=== PATIENT | male | born 1965 | race Caucasian/White ===

== ENCOUNTER 2017-11-08 09:12 | Inpatient (IN) | payer SELFPAY ==
[~2017-11-08] VITALS: Ht 193 cm; Wt 136.0 kg
[~2017-11-08 09:12] MED LIST: ACET325 PO; AMOX500 PO; CEFTR1PB IV; CEPH500 PO; CLIN300 PO; CRUTCH USE; CYCL10 PO; Cephalexin500 M1 PO; DIBU30TO PR; DOXY100 PO; GLIM2 PO; HYDACE10B PO; HYDACE25S PR; HYDACE5; HYDACE5 PO; HYDCOR2.5A PR; HYDCOR2.5C PR; HYDMOR2 PO; HYDMOR4 PO; HYDR1TAB94 PO; HYDR25SUP PR; IBUP800; IBUP800 PO; LORA2 PO; META400 PO; META800 PO; METF500 PO; METF500C PO; NAPR220 PO; NAPR500 PO; OMEP20ER; OXYACE10 PO; OXYACE5T PO; PRAHYD1AE TOP; PRED20 PO; Prednisone20 MG PO; RXCYCL10 PO; RXLORA1 PO; RXOXYACE PO; SACC250C PO; SULTRIDS PO; UNKNOWN ABX
[2017-11-08] MEDS ORDERED: METF500C PO (09:43)
[2017-11-08] MEDS ORDERED: GLIP2.5ER PO (09:43)
[2017-11-08] MEDS ORDERED: Bactrim Ds Tab1 EACH PO (09:45)
[2017-11-08] MEDS ORDERED: NAPR220 (09:45)
[2017-11-08] MEDS ORDERED: CEPH500 PO (09:47)
[2017-11-08 09:53] LABS: BASOPHILS ABSOLUTE AUTO 0.05 K/mm3 (0.00-0.23); BASOPHILS PERCENT AUTO 1 % (0-2); EOSINOPHILS ABSOLUTE AUTO 0.13 K/mm3 (0.00-0.68); EOSINOPHILS PERCENT AUTO 2 % (0-6); Hematocrit 41.3 % (37.0-53.0); Hemoglobin 14.2 g/dL (13.5-17.5); IMMATURE GRAN ABSOLUTE AUTO 0.02 K/mm3 (0.00-0.10); IMMATURE GRAN PERCENT AUTO 0 % (0-1); LYMPHOCYTES ABSOLUTE AUTO 1.19 K/mm3 (0.84-5.20); LYMPHOCYTES PERCENT AUTO 20 % (21-46); MONOCYTES ABSOLUTE AUTO 0.48 K/mm3 (0.16-1.47); MONOCYTES PERCENT AUTO 8 % (4-13); Mean Corpuscular HGB Conc 34.4 g/dL (31.5-36.5); Mean Corpuscular Volume 90 fL (80-100); Mean Platelet Volume 10.4 fL (9.1-12.4); NEUTROPHILS ABSOLUTE AUTO 4.18 K/mm3 (1.96-9.15); NEUTROPHILS PERCENT AUTO 69 % (41-73); Platelet Count 226 K/mm3 (150-400); RDW Coefficient Variation 11.8 % (11.7-14.2); RDW Standard Deviation 38.8 fL (35.1-46.3); Red Blood Cell Count 4.58 M/mm3 (4.30-5.90); White Blood Cell Count 6.05 K/mm3 (4.00-11.30)
[2017-11-08 10:14] LABS: Alanine Aminotransfer (ALT/SGP 31 U/L (12-78); Albumin, Blood 4.1 g/dL (3.4-5.0); Albumin/Globulin Ratio 1.1 (0.8-1.8); Alk Phos 85 U/L (50-136); Anion Gap 9 mmol/L (6-16); Aspartate Aminotrans (AST/SGOT 16 U/L (12-37); Bilirubin, Total 0.6 mg/dL (0.1-1.0); Blood Urea Nitrogen 18 mg/dL (8-24); Bun/Creatinine Ratio 25.4 (12.0-20.0); CO2, Blood 24 mmol/L (21-32); Chloride, Blood 105 mmol/L (98-108); Creatinine, Blood 0.71 mg/dL (0.60-1.20); Globulin, Blood 3.6 g/dL (2.2-4.0); Glomerular Filtration Rate >60 (60-); Glucose, Blood 226 mg/dL (70-99); Potassium, Blood 4.6 mmol/L (3.5-5.5); Sodium, Blood 138 mmol/L (136-145); Total Protein, Blood 7.7 g/dL (6.4-8.2)
[2017-11-09 11:30] LABS: Vancomycin, Trough 11.7 ug/mL (5.0-10.0)
[2017-11-10 05:31] LABS: BASOPHILS ABSOLUTE AUTO 0.06 K/mm3 (0.00-0.23); BASOPHILS PERCENT AUTO 1 % (0-2); EOSINOPHILS ABSOLUTE AUTO 0.17 K/mm3 (0.00-0.68); EOSINOPHILS PERCENT AUTO 3 % (0-6); Hematocrit 38.5 % (37.0-53.0); Hemoglobin 13.4 g/dL (13.5-17.5); IMMATURE GRAN ABSOLUTE AUTO 0.02 K/mm3 (0.00-0.10); IMMATURE GRAN PERCENT AUTO 0 % (0-1); LYMPHOCYTES ABSOLUTE AUTO 2.02 K/mm3 (0.84-5.20); LYMPHOCYTES PERCENT AUTO 33 % (21-46); MONOCYTES ABSOLUTE AUTO 0.73 K/mm3 (0.16-1.47); MONOCYTES PERCENT AUTO 12 % (4-13); Mean Corpuscular HGB 31.3 pg (26.0-34.0); Mean Corpuscular HGB Conc 34.8 g/dL (31.5-36.5); Mean Corpuscular Volume 90 fL (80-100); Mean Platelet Volume 10.4 fL (9.1-12.4); NEUTROPHILS ABSOLUTE AUTO 3.22 K/mm3 (1.96-9.15); NEUTROPHILS PERCENT AUTO 52 % (41-73); Platelet Count 212 K/mm3 (150-400); RDW Coefficient Variation 11.7 % (11.7-14.2); RDW Standard Deviation 38.4 fL (35.1-46.3); Red Blood Cell Count 4.28 M/mm3 (4.30-5.90); White Blood Cell Count 6.22 K/mm3 (4.00-11.30)
[2017-11-10 06:01] LABS: Alanine Aminotransfer (ALT/SGP 26 U/L (12-78); Albumin, Blood 3.3 g/dL (3.4-5.0); Alk Phos 76 U/L (50-136); Anion Gap 8 mmol/L (6-16); Aspartate Aminotrans (AST/SGOT 12 U/L (12-37); Bilirubin, Total 0.8 mg/dL (0.1-1.0); Blood Urea Nitrogen 18 mg/dL (8-24); Bun/Creatinine Ratio 30.2 (12.0-20.0); CO2, Blood 26 mmol/L (21-32); Calcium, Blood 8.5 mg/dL (8.5-10.1); Chloride, Blood 104 mmol/L (98-108); Globulin, Blood 3.4 g/dL (2.2-4.0); Glomerular Filtration Rate >60 (60-); Glucose, Blood 187 mg/dL (70-99); Potassium, Blood 4.1 mmol/L (3.5-5.5); Sodium, Blood 138 mmol/L (136-145); Total Protein, Blood 6.7 g/dL (6.4-8.2)
[2017-11-10 11:13] LABS: Vancomycin, Trough 17.1 ug/mL (5.0-10.0)
[2017-11-10] MEDS ORDERED: Lisinopril2.5 MG PO (11:28)
[2017-11-10] MEDS ORDERED: HYDR1TAB94 PO (11:28)
== END 2017-11-10 12:29 | disposition home or self-care (01) | DRG 617 ==
LOC: ER 09:12 → MEDS 10:02 → ENPENDDIS 11-10 09:00 → MEDS 11-10 12:29
PROVIDERS: Emergency Medicine; Hospitalist; Podiatrist
PROC: 3E0234Z Introduction of Serum, Toxoid and Vaccine into Muscle, Percutaneous Approach (ICD-10-PCS; 2017-11-08)
PROC: 0Y6X0Z0 Detachment at Right 5th Toe, Complete, Open Approach (ICD-10-PCS; principal; 2017-11-09 09:00)
DX: E11.69 Type 2 diabetes mellitus with other specified complication (principal); M86.9 Osteomyelitis, unspecified; L97.511 Non-pressure chronic ulcer of other part of right foot limited to breakdown of skin; Z23 Encounter for immunization; F17.220 Nicotine dependence, chewing tobacco, uncomplicated; E11.42 Type 2 diabetes mellitus with diabetic polyneuropathy; E78.5 Hyperlipidemia, unspecified; E11.621 Type 2 diabetes mellitus with foot ulcer; E66.9 Obesity, unspecified; Z68.36 Body mass index [BMI] 36.0-36.9, adult
CPT/HCPCS: 36415; 73630; 80053; 80202; 82565; 82947; 85025; 85651; 86140; 87071; 87075; 87205; 88307; 88311; 96365; 96366; 99285; J2250; J3010; J3370; J7030; J7050

== ENCOUNTER 2018-03-17 14:18 | Emergency (ER) | payer OTHER ==
[~2018-03-17] VITALS: Ht 193 cm; Wt 136.1 kg
[~2018-03-17 14:18] MED LIST changes: +Bactrim Ds Tab1 EACH PO; +GLIP2.5ER PO; +Lisinopril2.5 MG PO; +NAPR220
[2018-03-17] MEDS ORDERED: LEVO750 PO (15:33)
== END 2018-03-17 15:58 | disposition home or self-care (01) ==
LOC: ER 14:18
DX: S91.332A Puncture wound without foreign body, left foot, initial encounter (principal); L03.116 Cellulitis of left lower limb; Z23 Encounter for immunization; E11.9 Type 2 diabetes mellitus without complications; F17.220 Nicotine dependence, chewing tobacco, uncomplicated; Z88.5 Allergy status to narcotic agent; Z79.899 Other long term (current) drug therapy; Z79.82 Long term (current) use of aspirin; W45.0XXA Nail entering through skin, initial encounter
CPT/HCPCS: 73630; 90471; 90714; 99283

== ENCOUNTER 2018-10-24 11:39 | Emergency (ER) | payer OTHER ==
[~2018-10-24] VITALS: Ht 193 cm; Wt 132.4 kg
[~2018-10-24 11:39] MED LIST changes: +LEVO750 PO
[2018-10-24] MEDS ORDERED: Augmentin 875-1 EACH PO (12:18)
[2018-10-24] MEDS ORDERED: Bactrim Ds Tab1 EACH PO (12:37)
== END 2018-10-24 12:49 | disposition home or self-care (01) ==
LOC: ER 11:39
DX: E11.621 Type 2 diabetes mellitus with foot ulcer (principal); L97.529 Non-pressure chronic ulcer of other part of left foot with unspecified severity; Z88.5 Allergy status to narcotic agent; Z79.899 Other long term (current) drug therapy; Z79.84 Long term (current) use of oral hypoglycemic drugs; F17.220 Nicotine dependence, chewing tobacco, uncomplicated
CPT/HCPCS: 99283

== ENCOUNTER → 2018-11-17 | Outpatient (CLI) | payer OTHER ==
[~2018-11-17] MED LIST changes: +Augmentin 875-1 EACH PO
== END | disposition home or self-care (01) ==
LOC: LAB SHORT 14:04 → PLD 14:04
DX: M21.622 Bunionette of left foot (principal); L97.529 Non-pressure chronic ulcer of other part of left foot with unspecified severity
CPT/HCPCS: 88305; 88311

== ENCOUNTER 2019-03-07 21:52 | Emergency (ER) | payer OTHER ==
[~2019-03-07] VITALS: Ht 193 cm; Wt 131.5 kg
[2019-03-07] MEDS ORDERED: Bactrim Ds Tab1 EACH PO (23:20)
[2019-03-07] MEDS ORDERED: CEPH500 PO (23:20)
== END 2019-03-07 23:32 | disposition home or self-care (01) ==
LOC: ER 21:52
DX: E11.621 Type 2 diabetes mellitus with foot ulcer (principal); L97.519 Non-pressure chronic ulcer of other part of right foot with unspecified severity; E11.21 Type 2 diabetes mellitus with diabetic nephropathy; Z89.421 Acquired absence of other right toe(s)
CPT/HCPCS: 99283

== ENCOUNTER → 2021-02-13 | Outpatient (CLI) | payer OTHER ==
[~2021-02-13] MED LIST changes: +Doxycycline Mo100 M1 PO; +VISBIOME 112.51 EACH PO
== END | disposition home or self-care (01) ==
LOC: LAB SHORT 09:20 → LAB 09:20
DX: L08.9 Local infection of the skin and subcutaneous tissue, unspecified (principal)
CPT/HCPCS: 87070; 87077; 87106; 87147; 87186; 87205

== ENCOUNTER 2021-02-14 09:18 | Inpatient (IN) | payer OTHER, MEDICARE ==
[~2021-02-14] VITALS: Ht 193 cm; Wt 127.9 kg
[~2021-02-14 09:18] MED LIST changes: -Doxycycline Mo100 M1 PO; -VISBIOME 112.51 EACH PO
[2021-02-14] MEDS ORDERED: Doxycycline Mo100 M1 PO (10:16)
[2021-02-14] MEDS ORDERED: CEPH500 PO (10:17)
[2021-02-14 10:59] LABS: BASOPHILS ABSOLUTE AUTO 0.05 K/mm3 (0.00-0.23); BASOPHILS PERCENT AUTO 1 % (0-2); EOSINOPHILS ABSOLUTE AUTO 0.07 K/mm3 (0.00-0.68); EOSINOPHILS PERCENT AUTO 1 % (0-6); Hematocrit 39.3 % (37.0-53.0); Hemoglobin 14.4 g/dL (13.5-17.5); IMMATURE GRAN ABSOLUTE AUTO 0.02 K/mm3 (0.00-0.10); IMMATURE GRAN PERCENT AUTO 0 % (0-1); LYMPHOCYTES ABSOLUTE AUTO 0.87 K/mm3 (0.84-5.20); LYMPHOCYTES PERCENT AUTO 13 % (21-46); MONOCYTES ABSOLUTE AUTO 0.61 K/mm3 (0.16-1.47); MONOCYTES PERCENT AUTO 9 % (4-13); Mean Corpuscular HGB 33.6 pg (26.0-34.0); Mean Corpuscular HGB Conc 36.6 g/dL (31.5-36.5); Mean Corpuscular Volume 92 fL (80-100); Mean Platelet Volume 10.4 fL (9.1-12.4); NEUTROPHILS ABSOLUTE AUTO 5.13 K/mm3 (1.96-9.15); NEUTROPHILS PERCENT AUTO 76 % (41-73); Platelet Count 213 K/mm3 (150-400); RDW Coefficient Variation 11.8 % (11.7-14.2); RDW Standard Deviation 39.7 fL (35.1-46.3); Red Blood Cell Count 4.28 M/mm3 (4.30-5.90); White Blood Cell Count 6.75 K/mm3 (4.00-11.30)
[2021-02-14 11:32] LABS: Alanine Aminotransfer (ALT/SGP 18 U/L (12-78); Albumin, Blood 3.6 g/dL (3.4-5.0); Albumin/Globulin Ratio 0.9 (0.8-1.8); Alk Phos 88 U/L (50-136); Anion Gap 6 mmol/L (6-16); Aspartate Aminotrans (AST/SGOT 16 U/L (12-37); Blood Urea Nitrogen 8 mg/dL (8-24); Bun/Creatinine Ratio 15.6 (12.0-20.0); CO2, Blood 26 mmol/L (21-32); Calcium, Blood 9.2 mg/dL (8.5-10.1); Chloride, Blood 101 mmol/L (98-108); Creatinine, Blood 0.51 mg/dL (0.60-1.20); Globulin, Blood 3.8 g/dL (2.2-4.0); Glomerular Filtration Rate >60 (60-); Glucose, Blood 296 mg/dL (70-99); Potassium, Blood 4.3 mmol/L (3.5-5.5); Sodium, Blood 133 mmol/L (136-145); Total Protein, Blood 7.4 g/dL (6.4-8.2)
--- NOTE | 2021-02-14 17:07 | NUR ---
SUMMARY PT ADMITTED FROM THE ER FOR OSTEOMYELITIS, PT IS ALERT AND ORIENTED, INDEPENDENT IN THE ROOM, ORIENTED PT TO THE ROOM AND CALL SYSTEM, PT'S R 4TH TOE WAS OPEN TO AIR WHEN HE ARRIVED, WOUND IS DRY AND SCALY, SCANT DRY DRAINANGE, PT DENIES ANY PAIN, AREA COVERED WITH A FOAM DRESSING AND MEFIX TAPE, PT HAS BEEN PLEASANT AND COOPERATIVE WITH CARE, VSS, WILL CONTINUE TO MONITOR
--- NOTE | 2021-02-15 04:48 | NUR ---
PT with hx of rt little toe amputation 3 years ago admitted for possible surgical intervention & is NPO pending podietry consult. Fed 2 yogurts just prior to NPO at midnight. On vanco & 2d abx. No feelings of pain bilat feet.
[2021-02-15 04:56] LABS: BASOPHILS ABSOLUTE AUTO 0.04 K/mm3 (0.00-0.23); BASOPHILS PERCENT AUTO 1 % (0-2); EOSINOPHILS ABSOLUTE AUTO 0.13 K/mm3 (0.00-0.68); EOSINOPHILS PERCENT AUTO 3 % (0-6); Hematocrit 36.4 % (37.0-53.0); Hemoglobin 13.2 g/dL (13.5-17.5); IMMATURE GRAN ABSOLUTE AUTO 0.01 K/mm3 (0.00-0.10); IMMATURE GRAN PERCENT AUTO 0 % (0-1); LYMPHOCYTES ABSOLUTE AUTO 1.31 K/mm3 (0.84-5.20); LYMPHOCYTES PERCENT AUTO 31 % (21-46); MONOCYTES ABSOLUTE AUTO 0.48 K/mm3 (0.16-1.47); MONOCYTES PERCENT AUTO 11 % (4-13); Mean Corpuscular HGB 33.5 pg (26.0-34.0); Mean Corpuscular HGB Conc 36.3 g/dL (31.5-36.5); Mean Corpuscular Volume 92 fL (80-100); Mean Platelet Volume 10.4 fL (9.1-12.4); NEUTROPHILS ABSOLUTE AUTO 2.33 K/mm3 (1.96-9.15); NEUTROPHILS PERCENT AUTO 54 % (41-73); Platelet Count 193 K/mm3 (150-400); RDW Coefficient Variation 11.7 % (11.7-14.2); RDW Standard Deviation 39.7 fL (35.1-46.3); Red Blood Cell Count 3.94 M/mm3 (4.30-5.90)
[2021-02-15 05:09] LABS: International Normalized Ratio 0.97; Prothrombin Time Results 10.5 Sec (9.7-11.5)
[2021-02-15 05:15] LABS: Alanine Aminotransfer (ALT/SGP 12 U/L (12-78); Albumin/Globulin Ratio 0.9 (0.8-1.8); Alk Phos 74 U/L (50-136); Anion Gap 6 mmol/L (6-16); Aspartate Aminotrans (AST/SGOT 5 U/L (12-37); Bilirubin, Total 0.7 mg/dL (0.1-1.0); Blood Urea Nitrogen 12 mg/dL (8-24); Bun/Creatinine Ratio 22.7 (12.0-20.0); CO2, Blood 26 mmol/L (21-32); Calcium, Blood 8.8 mg/dL (8.5-10.1); Chloride, Blood 104 mmol/L (98-108); Creatinine, Blood 0.53 mg/dL (0.60-1.20); Globulin, Blood 3.3 g/dL (2.2-4.0); Glomerular Filtration Rate >60 (60-); Glucose, Blood 260 mg/dL (70-99); Magnesium, Blood 2.1 mg/dL (1.6-2.4); Potassium, Blood 3.7 mmol/L (3.5-5.5); Sodium, Blood 136 mmol/L (136-145); Total Protein, Blood 6.3 g/dL (6.4-8.2)
--- NOTE | 2021-02-15 07:30 | NUR ---
ASSUMED CARE: PT RESTING IN BED, TALKING TO STAFF. DENIES NEEDS OR CONCERNS. RIGHT SMALL TOE WITH DRESSING CDI. PT AWARE THAT HE IS NPO AT THIS TIME.
--- NOTE | 2021-02-15 08:24 | NUR ---
ATTEMPTED TO CALL DR ALVAREZ OFFICE, NOTE IN THAT MESSAGE HAS BEEN LEFT BY OTHER STAFF. WILL TRY AGAIN DURING OFFICE HOURS.
--- NOTE | 2021-02-15 08:50 | NUR ---
INSTRUCTED BY DR DIAZ TO ALLOW PT TO HAVE BREAKFAST AND NPO AFTER BREAKFAST
--- NOTE | 2021-02-15 09:43 | NUR ---
CALL TO DR ALVAREZ OFFICE TO LET THEM KNOW ABOUT CONSULT AND CHECK ABOUT DR ALVAREZ' PLANS FOR PT SO THAT WE KNOW NPO STATUS. AWAITING CALL BACK
--- NOTE | 2021-02-15 11:17 | NUR ---
DR ALVAREZ' OFFICE CALLED AND STATED THAT PT CAN EAT DUE TO DR NOT BEING ABLE TO SEE PT UNTIL THIS EVENING. PT AWARE. PT ASKED IF HE CAN GET UP TO CHAIR. RECOMMENDED TO PT THAT IF AMBULATING HE SHOULD NOT BEAR WEIGHT ON FOOT AND TO DO HEEL TOUCH ONLY. PT AGREEABLE TO THIS.
--- NOTE | 2021-02-15 17:58 | NUR ---
Spiritual care note: Mr. Lucio was pleasantly dismissive of computerized mill recorder services at this time. He told me he was awaiting surgery to "remove another toe." "Its my own fault." He stated he feel well-loved and supported by family and denied concerns/needs. I will remain available.
--- NOTE | 2021-02-15 17:59 | NUR ---
SHIFT SUMMARY: DR ALVAREZ CAME TO SEE PT AND PLANS TO OPERATE ON PT'S TOE TOMORROW AFTERNOON. STATES NPO AFTER BREAKFAST. PT AGREEABLE TO THIS PLAN. CEREAL MAKER MADE AWARE. NO FURTHER NEEDS AT THIS TIME.
--- NOTE | 2021-02-16 07:23 | NUR ---
ASSUMED CARE: PT RESTING QUIETLY AT THIS TIME. PLAN FOR SURGERY THIS AFTERNOON. DIRECTOR VIDEO AWARE OF 2ND IV NEEDED SINCE FIRST IS IN HAND. NO FURTHER NEEDS AT THIS TIME.
--- NOTE | 2021-02-16 07:25 | NUR ---
SHIFT SUMMARY: PATIENT IS A&OX4, NO REPORT OF PAIN. VSS, IV ANTIBIOTICS WERE GIVEN PER NOV. CLEAR LIQUID BREAKFAST IS ORDERED AND THEN NPO FOR SURGICAL PROCEEDURE THE AFTER NOON.
--- NOTE | 2021-02-16 10:42 | NUR ---
CALL TO DAY SURGERY TO FIND OUT SCHEDULE FOR PT'S SURGERY. DAY SURGERY STATES PT IS NOT ON SCHEDULE. CALL TO DR ALVAREZ' OFFICE WHO STATES THEY WILL BE CALLING TO GET PT ADDED ON
[2021-02-16 15:01] LABS: Vancomycin, Trough 10.6 ug/mL (5.0-10.0)
--- NOTE | 2021-02-16 16:26 | NUR ---
PT TAKEN TO DAY SURGERY BY HOSPITAL STAFF
--- NOTE | 2021-02-16 17:03 | NUR ---
PATIENT WAS BROUGHT TO D/S FOR HIS PROCEDURE. Ambulatory in Day Surgery History, Chart, Medications and Allergies reviewed before start of procedure.Lungs clear T/O to Auscultation. Patient confirms NPO status and agrees with scheduled surgery. Pre-Op teaching done. Pt verbalizes understanding. Patient States Post-Procedure ride home has been arranged.
--- NOTE | 2021-02-16 17:25 | NUR ---
02/16/21 1725 Mary Root PT ON SCHEDULED ANTIBIOTICS
--- NOTE | 2021-02-16 19:21 | NUR ---
SHIFT SUMMARY: PT RETURNED FROM DAY SURGERY WITH DRESSING TO RIGHT FOOT CDI. DAY SURGERY REPORTS PARTIAL AMPUTATION OF 4TH TOE. PT DENIES PAIN AT THIS TIME. NO FURTHER NEEDS OR CONCERNS.
--- NOTE | 2021-02-17 01:25 | NUR ---
BLOOD GLUCOSE: HS BLOOD GLUCOSE AT HS WAS 325, ELEAZAR GARCIAS NP WAS NOTIFIED AND ORDER TO GIVE 4 UNITS OF HUMALOG COVERAGE, THIS WAS GIVING WITH 10 UNITS OF SEMGLEE PER MAR.
--- NOTE | 2021-02-17 06:31 | NUR ---
SHIFT SUMMMARY: PATIENT HAS NO PAIN IN SURGICAL SIGHT, ONLY LOW BACK PAIN FROM THE BED. CALL WAS PLACED TO ELEAZAR AYALA PIPE AND TEST SUPERVISOR FOR UNRELIEVED PAIN. ORDER FOR OXYCODONE WAS OBTAINED AND MED WAS GIVEN WITH GOOD EFECT. DRSG TO R 4TH TOE IS CD&I, EXTREMITY IS ELEVATED. IVF ARE INFUSING PER MD ORDER, PATIENT IS TOLERATING DIET WELL.
[2021-02-17] MEDS ORDERED: VISBIOME 112.51 EACH PO (14:38)
[2021-02-17] MEDS ORDERED: METF500 PO (14:38)
[2021-02-17 15:25] LABS: Vancomycin, Trough 21.1 ug/mL (5.0-10.0)
--- NOTE | 2021-02-17 17:44 | NUR ---
SHIFT SUMMARY PT AWAKE THIS AM DURING SHIFT REPORT. VERY PLEASANT AND CO-OP WITH CARE. USING URINAL AT BS D/T R FOOT TOE AMPUTATION. PT WANTING TO GO HOME ALL DAY. DR POLANCO HERE THIS AFTERNOON AND AGREED TO D/C PT TO HOME. APPOINTMENTS MADE FOR F/U WITH DR ALVAREZ WELL NEW PATIENT APPOINTMENTS FOR NEXT WEEK. MEDS FAXED TO [facility], PER PT REQUEST. PT TO GO HOME ON PO ABX. DRSG TO R FOOT REMAINED C/D/I; DID NOT NEED TO BE RE-ENFORCED. FAMILY HERE TO TAKE PT HOME. PT ASSISTED OUT TO CAR VIA W/C. PT STARTED BACK ON METFORMIN, EDU GIVEN AND PT VERBALIZED UNDERSTANDING. PT ALSO TO COMPLETE REMAINING PO ABX AT HOME AND ADDITIONAL THAT WERE ADDED. PT VERBALIZED UNDERSTANDING OF MEDICATIONS AND F/U APPOINTMENTS, WHICH HAD BEEN GONE OVER BY INTERNAL RECRUITER AND NURSE. DENIED FURTHER NEEDS. PT GRATEFUL TO GET TO GO HOME.
== END 2021-02-17 16:20 | disposition home or self-care (01) | DRG 617 ==
LOC: ER 09:18 → MEDS 12:52
PROVIDERS: Emergency Medicine; Nurse Practitioner Acute Care; Podiatrist; ADMIT Family Medicine
PROC: 0Y6V0Z0 Detachment at Right 4th Toe, Complete, Open Approach (ICD-10-PCS; principal; 2021-02-16 16:45)
DX: E11.69 Type 2 diabetes mellitus with other specified complication (principal); M86.171 Other acute osteomyelitis, right ankle and foot; L03.115 Cellulitis of right lower limb; E87.1 Hypo-osmolality and hyponatremia; E78.5 Hyperlipidemia, unspecified; E11.621 Type 2 diabetes mellitus with foot ulcer; L97.519 Non-pressure chronic ulcer of other part of right foot with unspecified severity; S92.531A Displaced fracture of distal phalanx of right lesser toe(s), initial encounter for closed fracture; B95.1 Streptococcus, group B, as the cause of diseases classified elsewhere; Z68.34 Body mass index [BMI] 34.0-34.9, adult; E66.01 Morbid (severe) obesity due to excess calories; M54.9 Dorsalgia, unspecified; D64.9 Anemia, unspecified; G89.29 Other chronic pain; E11.42 Type 2 diabetes mellitus with diabetic polyneuropathy; Z91.14 Patient's other noncompliance with medication regimen; F17.290 Nicotine dependence, other tobacco product, uncomplicated; Z98.890 Other specified postprocedural states; Z79.84 Long term (current) use of oral hypoglycemic drugs; Z79.899 Other long term (current) drug therapy; Z90.49 Acquired absence of other specified parts of digestive tract; Z89.421 Acquired absence of other right toe(s); X58.XXXA Exposure to other specified factors, initial encounter
CPT/HCPCS: 36415; 73630; 80053; 80202; 82947; 83036; 83735; 85025; 85610; 85651; 86141; 87040; 87070; 87075; 87077; 87147; 87186; 87205; 88305; 88311; 93005; 93010; 96365; 99284-25; A9270; J0692; J1100; J2250; J2405; J2543; J2704; J3010; J3370; J7030; J7050; J7120

== ENCOUNTER 2021-08-26 01:21 | Emergency (ER) | payer OTHER ==
[~2021-08-26] VITALS: Ht 193 cm; Wt 127.0 kg
[~2021-08-26 01:21] MED LIST changes: +Doxycycline Mo100 M1 PO; +VISBIOME 112.51 EACH PO
[2021-08-26] MEDS ORDERED: BASAGLAR K100 UNIT/8 SC (01:31)
[2021-08-26] MEDS ORDERED: METFORMIN HCL500 M2 PO (01:31)
[2021-08-26] MEDS ORDERED: JARDIANCE10 MG PO (01:32)
[2021-08-26 02:05] LABS: BASOPHILS ABSOLUTE AUTO 0.06 K/mm3 (0.00-0.23); BASOPHILS PERCENT AUTO 1 % (0-2); EOSINOPHILS ABSOLUTE AUTO 0.25 K/mm3 (0.00-0.68); EOSINOPHILS PERCENT AUTO 4 % (0-6); Hematocrit 39.7 % (37.0-53.0); Hemoglobin 14.2 g/dL (13.5-17.5); IMMATURE GRAN ABSOLUTE AUTO 0.01 K/mm3 (0.00-0.10); IMMATURE GRAN PERCENT AUTO 0 % (0-1); LYMPHOCYTES ABSOLUTE AUTO 2.21 K/mm3 (0.84-5.20); LYMPHOCYTES PERCENT AUTO 33 % (21-46); MONOCYTES ABSOLUTE AUTO 0.79 K/mm3 (0.16-1.47); MONOCYTES PERCENT AUTO 12 % (4-13); Mean Corpuscular HGB 33.1 pg (26.0-34.0); Mean Corpuscular HGB Conc 35.8 g/dL (31.5-36.5); Mean Corpuscular Volume 93 fL (80-100); NEUTROPHILS ABSOLUTE AUTO 3.33 K/mm3 (1.96-9.15); NEUTROPHILS PERCENT AUTO 50 % (41-73); Platelet Count 209 K/mm3 (150-400); RDW Standard Deviation 40.7 fL (35.1-46.3); Red Blood Cell Count 4.29 M/mm3 (4.30-5.90); White Blood Cell Count 6.65 K/mm3 (4.00-11.30)
[2021-08-26 02:24] LABS: Alanine Aminotransfer (ALT/SGP 23 U/L (12-78); Albumin, Blood 3.5 g/dL (3.4-5.0); Albumin/Globulin Ratio 1.1 (0.8-1.8); Alk Phos 60 U/L (50-136); Anion Gap 7 mmol/L (6-16); Aspartate Aminotrans (AST/SGOT 15 U/L (12-37); Bilirubin, Total 0.7 mg/dL (0.1-1.0); Blood Urea Nitrogen 11 mg/dL (8-24); Bun/Creatinine Ratio 18.6 (12.0-20.0); CO2, Blood 27 mmol/L (21-32); Calcium, Blood 8.9 mg/dL (8.5-10.1); Chloride, Blood 105 mmol/L (98-108); Creatinine, Blood 0.59 mg/dL (0.60-1.20); Globulin, Blood 3.3 g/dL (2.2-4.0); Glomerular Filtration Rate >60 (60-); Glucose, Blood 174 mg/dL (70-99); Potassium, Blood 4.1 mmol/L (3.5-5.5); Sodium, Blood 139 mmol/L (136-145); Total Protein, Blood 6.8 g/dL (6.4-8.2)
[2021-08-26] MEDS ORDERED: Cleocin HCl150 MG PO (06:09)
[2021-08-27] MEDS ORDERED: CEFD300 PO (15:11)
== END 2021-08-26 06:51 | disposition home or self-care (01) ==
LOC: ER 01:21
PROVIDERS: Student in an Organized Health Care Education/Training Program
DX: L03.032 Cellulitis of left toe (principal); Z88.5 Allergy status to narcotic agent; Z79.4 Long term (current) use of insulin; Z79.84 Long term (current) use of oral hypoglycemic drugs; E11.40 Type 2 diabetes mellitus with diabetic neuropathy, unspecified; M54.9 Dorsalgia, unspecified; G89.29 Other chronic pain; F17.220 Nicotine dependence, chewing tobacco, uncomplicated
CPT/HCPCS: 73630; 80053; 85025; 85651; 86140; 99283-25; A9270

== ENCOUNTER 2021-08-27 14:07 | Emergency (ER) | payer OTHER ==
[~2021-08-27] VITALS: Ht 193 cm; Wt 127.0 kg
[~2021-08-27 14:07] MED LIST changes: +BASAGLAR K100 UNIT/8 SC; +Cleocin HCl150 MG PO; +JARDIANCE10 MG PO; +METFORMIN HCL500 M2 PO
[2021-08-27 14:36] LABS: BASOPHILS ABSOLUTE AUTO 0.05 K/mm3 (0.00-0.23); BASOPHILS PERCENT AUTO 1 % (0-2); EOSINOPHILS ABSOLUTE AUTO 0.16 K/mm3 (0.00-0.68); EOSINOPHILS PERCENT AUTO 2 % (0-6); Hematocrit 43.2 % (37.0-53.0); Hemoglobin 15.5 g/dL (13.5-17.5); IMMATURE GRAN ABSOLUTE AUTO 0.02 K/mm3 (0.00-0.10); IMMATURE GRAN PERCENT AUTO 0 % (0-1); LYMPHOCYTES ABSOLUTE AUTO 1.68 K/mm3 (0.84-5.20); LYMPHOCYTES PERCENT AUTO 22 % (21-46); MONOCYTES ABSOLUTE AUTO 0.58 K/mm3 (0.16-1.47); MONOCYTES PERCENT AUTO 8 % (4-13); Mean Corpuscular HGB 33.3 pg (26.0-34.0); Mean Corpuscular HGB Conc 35.9 g/dL (31.5-36.5); Mean Corpuscular Volume 93 fL (80-100); NEUTROPHILS PERCENT AUTO 67 % (41-73); Platelet Count 221 K/mm3 (150-400); RDW Coefficient Variation 11.9 % (11.7-14.2); RDW Standard Deviation 40.9 fL (35.1-46.3); Red Blood Cell Count 4.66 M/mm3 (4.30-5.90); White Blood Cell Count 7.49 K/mm3 (4.00-11.30)
[2021-08-27] MEDS ORDERED: CEFD300 PO (15:11)
[2021-08-27 15:17] LABS: Anion Gap 10 mmol/L (6-16); Blood Urea Nitrogen 14 mg/dL (8-24); Bun/Creatinine Ratio 20.7 (12.0-20.0); CO2, Blood 25 mmol/L (21-32); Calcium, Blood 9.6 mg/dL (8.5-10.1); Chloride, Blood 104 mmol/L (98-108); Creatinine, Blood 0.68 mg/dL (0.60-1.20); Glomerular Filtration Rate >60 (60-); Glucose, Blood 211 mg/dL (70-99); Potassium, Blood 4.3 mmol/L (3.5-5.5); Sodium, Blood 139 mmol/L (136-145)
== END 2021-08-27 15:25 | disposition home or self-care (01) ==
LOC: ER 14:07
PROVIDERS: Physician Assistant
DX: L03.032 Cellulitis of left toe (principal); F17.220 Nicotine dependence, chewing tobacco, uncomplicated; E11.40 Type 2 diabetes mellitus with diabetic neuropathy, unspecified; Z79.4 Long term (current) use of insulin; Z88.5 Allergy status to narcotic agent
CPT/HCPCS: 36415; 73630; 80048; 85025; 85651; 99283-25

== ENCOUNTER 2022-03-15 13:22 | Emergency (ER) | payer OTHER ==
[~2022-03-15] VITALS: Ht 193 cm; Wt 127.0 kg
[~2022-03-15 13:22] MED LIST changes: +CEFD300 PO
[2022-03-15] MEDS ORDERED: CEPH500 PO (14:53)
== END 2022-03-15 15:15 | disposition home or self-care (01) ==
LOC: ER 13:22
DX: S90.121A Contusion of right lesser toe(s) without damage to nail, initial encounter (principal); E11.9 Type 2 diabetes mellitus without complications; F17.220 Nicotine dependence, chewing tobacco, uncomplicated; W20.8XXA Other cause of strike by thrown, projected or falling object, initial encounter
CPT/HCPCS: 73630

== ENCOUNTER 2022-05-17 11:27 | Day surgery (SDC) | payer OTHER ==
[~2022-05-17] VITALS: Ht 193 cm; Wt 122.2 kg
--- NOTE | 2022-05-17 13:03 | NUR ---
05/17/22 1303 [place] Mares 0.5% BUPIVICAINE MIXED 1:1 WITH LIDOCAINE 0.5% TO CREATE A LOCAL SOLUTION.
== END 2022-05-17 14:12 | disposition home or self-care (01) ==
LOC: ORSCSDS 11:27
PROVIDERS: Podiatrist
PROC: 0SNP0ZZ Release Right Toe Phalangeal Joint, Open Approach (ICD-10-PCS; principal; 2022-05-17 12:30)
PROC: 0L8V0ZZ Division of Right Foot Tendon, Open Approach (ICD-10-PCS; principal; 2022-05-17 12:30)
DX: M20.41 Other hammer toe(s) (acquired), right foot (principal); E11.9 Type 2 diabetes mellitus without complications; Z79.84 Long term (current) use of oral hypoglycemic drugs; Z79.899 Other long term (current) drug therapy
CPT/HCPCS: 82947; A9270; J0690; J2704; J7120

== ENCOUNTER 2022-07-15 10:33 | Emergency (ER) | payer OTHER ==
[~2022-07-15] VITALS: Ht 193 cm; Wt 127.0 kg
[2022-07-15] MEDS ORDERED: CLIN150 PO (11:57)
[2022-07-15] MEDS ORDERED: CEFD300 PO (11:57)
== END 2022-07-15 12:00 | disposition home or self-care (01) ==
LOC: ER 10:33
DX: E11.621 Type 2 diabetes mellitus with foot ulcer (principal); L97.519 Non-pressure chronic ulcer of other part of right foot with unspecified severity; E11.40 Type 2 diabetes mellitus with diabetic neuropathy, unspecified; Z79.84 Long term (current) use of oral hypoglycemic drugs; Z79.899 Other long term (current) drug therapy; Z88.5 Allergy status to narcotic agent; F17.220 Nicotine dependence, chewing tobacco, uncomplicated
CPT/HCPCS: 99282

== ENCOUNTER 2022-09-29 13:04 | Emergency (ER) | payer OTHER ==
[~2022-09-29] VITALS: Ht 193 cm; Wt 127.0 kg
[~2022-09-29 13:04] MED LIST changes: +CLIN150 PO
[2022-09-29] MEDS ORDERED: Norco 5-325 Ta1 EACH PO (15:44)
== END 2022-09-29 15:45 | disposition home or self-care (01) ==
LOC: ER 13:04
DX: S20.211A Contusion of right front wall of thorax, initial encounter (principal); W01.0XXA Fall on same level from slipping, tripping and stumbling without subsequent striking against object, initial encounter; E11.40 Type 2 diabetes mellitus with diabetic neuropathy, unspecified; F17.220 Nicotine dependence, chewing tobacco, uncomplicated; Z88.5 Allergy status to narcotic agent; Z79.899 Other long term (current) drug therapy; Z79.84 Long term (current) use of oral hypoglycemic drugs
CPT/HCPCS: 71101

== ENCOUNTER 2023-01-20 22:07 | Emergency (ER) | payer OTHER ==
[~2023-01-20] VITALS: Ht 193 cm; Wt 127.0 kg
[~2023-01-20 22:07] MED LIST changes: +Norco 5-325 Ta1 EACH PO
[2023-01-20 22:40] LABS: BASOPHILS ABSOLUTE AUTO 0.06 K/mm3 (0.00-0.23); BASOPHILS PERCENT AUTO 1 % (0-2); EOSINOPHILS ABSOLUTE AUTO 0.18 K/mm3 (0.00-0.68); EOSINOPHILS PERCENT AUTO 3 % (0-6); Hematocrit 42.6 % (37.0-53.0); Hemoglobin 15.4 g/dL (13.5-17.5); IMMATURE GRAN ABSOLUTE AUTO 0.02 K/mm3 (0.00-0.10); IMMATURE GRAN PERCENT AUTO 0 % (0-1); LYMPHOCYTES ABSOLUTE AUTO 2.78 K/mm3 (0.84-5.20); LYMPHOCYTES PERCENT AUTO 50 % (21-46); MONOCYTES ABSOLUTE AUTO 0.45 K/mm3 (0.16-1.47); MONOCYTES PERCENT AUTO 8 % (4-13); Mean Corpuscular HGB 33.6 pg (26.0-34.0); Mean Corpuscular HGB Conc 36.2 g/dL (31.5-36.5); Mean Corpuscular Volume 93 fL (80-100); NEUTROPHILS ABSOLUTE AUTO 2.11 K/mm3 (1.96-9.15); NEUTROPHILS PERCENT AUTO 38 % (41-73); Platelet Count 206 K/mm3 (150-400); RDW Coefficient Variation 11.6 % (11.7-14.2); RDW Standard Deviation 39.3 fL (35.1-46.3); Red Blood Cell Count 4.58 M/mm3 (4.30-5.90)
[2023-01-20 23:00] LABS: Albumin, Blood 3.9 g/dL (3.4-5.0); Albumin/Globulin Ratio 1.1 (0.8-1.8); Bilirubin, Total 0.8 mg/dL (0.1-1.0); Calcium, Blood 9.4 mg/dL (8.5-10.1); Creatinine, Blood 0.7 mg/dL (0.60-1.20); Globulin, Blood 3.4 g/dL (2.2-4.0); Potassium, Blood 3.9 mmol/L (3.5-5.5); Total Protein, Blood 7.3 g/dL (6.4-8.2)
[2023-01-20 23:47] LABS: Source, Urine Clean Catch
[2023-01-20 23:51] LABS: Bilirubin, Urine Neg (Neg); Blood, Urine Neg (Neg); Glucose Qualitative, Urine 4+ (Neg); Ketones, Urine Neg (Neg); Leukocyte Esterase, Urine Neg (Neg); Nitrite, Urine Neg (Neg); Protein, Urine 1+ (Neg); Specific Gravity, Urine 1.005 (1.003-1.022); Urobilinogen, Urine NORM (Normal)
[2023-01-20 23:54] LABS: Appearance, Urine Clear (Clear); Color, Urine Pale Yellow (P-Yellow)
[2023-01-21 01:01] VITALS: BP 116/76
[2023-01-21] MEDS ORDERED: MECL25 PO (02:00)
== END 2023-01-21 02:07 | disposition home or self-care (01) ==
LOC: ER 22:07
PROVIDERS: Student in an Organized Health Care Education/Training Program
DX: R42 Dizziness and giddiness (principal); E11.9 Type 2 diabetes mellitus without complications; F17.220 Nicotine dependence, chewing tobacco, uncomplicated; Z88.8 Allergy status to other drugs, medicaments and biological substances; Z88.5 Allergy status to narcotic agent; Z79.84 Long term (current) use of oral hypoglycemic drugs
CPT/HCPCS: 80053; 85025; 93005; 93010; 96360; 99283-25; A9270; J7030

== ENCOUNTER 2023-09-09 11:30 | Emergency (ER) | payer OTHER ==
[~2023-09-09] VITALS: Ht 193 cm; Wt 127.0 kg
[~2023-09-09 11:30] MED LIST changes: +MECL25 PO
[2023-09-09 11:57] VITALS: BP 152/87
[2023-09-09] MEDS ORDERED: Bactrim Ds Tab1 EACH PO (12:05)
== END 2023-09-09 12:29 | disposition home or self-care (01) ==
LOC: ER 11:30
DX: E11.621 Type 2 diabetes mellitus with foot ulcer (principal); L97.519 Non-pressure chronic ulcer of other part of right foot with unspecified severity; Z89.421 Acquired absence of other right toe(s); F17.220 Nicotine dependence, chewing tobacco, uncomplicated; E11.40 Type 2 diabetes mellitus with diabetic neuropathy, unspecified; M86.9 Osteomyelitis, unspecified; Z79.84 Long term (current) use of oral hypoglycemic drugs
CPT/HCPCS: 99283; A9270

== ENCOUNTER 2024-12-25 23:50 | Emergency (ER) | payer OTHER ==
[~2024-12-25] VITALS: Ht 193 cm; Wt 123.4 kg
[2024-12-26 00:13] VITALS: BP 121/93
== END 2024-12-26 04:02 | disposition home or self-care (01) ==
LOC: ER 23:50
DX: S91.102D Unspecified open wound of left great toe without damage to nail, subsequent encounter (principal); E11.40 Type 2 diabetes mellitus with diabetic neuropathy, unspecified; F17.220 Nicotine dependence, chewing tobacco, uncomplicated; X58.XXXD Exposure to other specified factors, subsequent encounter; Z79.84 Long term (current) use of oral hypoglycemic drugs; Z79.899 Other long term (current) drug therapy; Z88.5 Allergy status to narcotic agent
CPT/HCPCS: 99282